=== PATIENT | female | born 1970 | race Caucasian/White ===

== ENCOUNTER 2022-02-09 18:13 | Emergency (ER) | payer OTHER ==
[~2022-02-09] VITALS: Ht 157.5 cm; Wt 75.7 kg
[2022-02-09] MEDS ORDERED: LISINOPRIL 20 MG TABLET ONE (20:00)
[2022-02-09] MEDS ORDERED: KETOROLAC 60 MG VIAL (30MG/ML) IM ONE (20:00)
[2022-02-09] MEDS ORDERED: LISINOPRIL 20 MG TABLET PO ONE (20:00)
[2022-02-09] MEDS ORDERED: ORPHENADRINE CITRATE 30 MG/ML ML IM ONE (20:00)
[2022-02-09 20:02] VITALS: BP 209/120
[2022-02-09] MEDS ORDERED: LISI10TA24 PO (20:05)
[2022-02-09] MEDS ORDERED: LIDOP TP (20:05)
[2022-02-09] MEDS ORDERED: CYCL-309 PO (20:05)
[2022-02-09] MEDS ORDERED: MELO7.5T12 PO (20:05)
== END 2022-02-09 20:46 | disposition home or self-care (01) ==
LOC: EDH 18:13
DX: S46.912A Strain of unspecified muscle, fascia and tendon at shoulder and upper arm level, left arm, initial encounter (principal); S29.012A Strain of muscle and tendon of back wall of thorax, initial encounter; R03.0 Elevated blood-pressure reading, without diagnosis of hypertension; Z79.899 Other long term (current) drug therapy; V49.49XA Driver injured in collision with other motor vehicles in traffic accident, initial encounter; Y93.89 Activity, other specified; Y92.413 State road as the place of occurrence of the external cause; Y99.8 Other external cause status
CPT/HCPCS: 96372 ×2; 99284; J1885; J2360